=== PATIENT | male | born 1965 | race Caucasian/White ===

== ENCOUNTER 2019-01-18 12:11 | Emergency (ER) | payer OTHER ==
[~2019-01-18] VITALS: Ht 177.8 cm; Wt 118.2 kg
[~2019-01-18 12:11] MED LIST: CLINDAMYCIN150 MG PO; PRAVASTATIN20 MG PO; TENORMIN25 MG PO
[2019-01-18] MEDS ORDERED: ROBINUL FORTE2 MG PO (12:24)
[2019-01-18] MEDS ORDERED: PROZAC40 MG PO (12:25)
[2019-01-18] MEDS ORDERED: MINIPRESS2 MG (12:25)
[2019-01-18] MEDS ORDERED: TYLENOL PM EXTR1 TA1 PO (12:26)
[2019-01-18] MEDS ORDERED: LIPITOR 10MG10 MG PO (12:26)
[2019-01-18] MEDS ORDERED: LOPRESSOR 225 MG/TAB PO (12:26)
[2019-01-18] MEDS ORDERED: CRUTCHES MC (13:13)
[2019-01-18] MEDS ORDERED: NORCO 325 MG-7.1 TAB PO (14:29)
[2019-01-18 14:47] VITALS: BP 109/57; PULSE 63
== END 2019-01-18 14:48 | disposition home or self-care (01) ==
LOC: COL.ER 12:11
DX: S92.002A Unspecified fracture of left calcaneus, initial encounter for closed fracture (principal); E78.5 Hyperlipidemia, unspecified; I10 Essential (primary) hypertension; F41.9 Anxiety disorder, unspecified; F32.9 Major depressive disorder, single episode, unspecified; Z90.49 Acquired absence of other specified parts of digestive tract; W11.XXXA Fall on and from ladder, initial encounter; Y92.009 Unspecified place in unspecified non-institutional (private) residence as the place of occurrence of the external cause
CPT/HCPCS: Q4045

== ENCOUNTER → 2021-07-03 | Outpatient (CLI) | payer OTHER ==
[~2021-07-03] MED LIST changes: +CRUTCHES MC; +LIPITOR 10MG10 MG PO; +LOPRESSOR 225 MG/TAB PO; +MINIPRESS2 MG; +NORCO 325 MG-7.1 TAB PO; +PROZAC40 MG PO; +ROBINUL FORTE2 MG PO; +TYLENOL PM EXTR1 TA1 PO
== END ==
LOC: COL.RAD 09:49
DX: K40.90 Unilateral inguinal hernia, without obstruction or gangrene, not specified as recurrent (principal); K57.30 Diverticulosis of large intestine without perforation or abscess without bleeding; R91.1 Solitary pulmonary nodule
CPT/HCPCS: Q9967

== ENCOUNTER 2021-09-10 05:17 | Day surgery (SDC) | payer OTHER ==
[~2021-09-10] VITALS: Ht 208.3 cm; Wt 124.6 kg
--- NOTE | 2021-09-10 05:26 | NUR ---
56 Year old male admitted to [facility] via ambulation and no use of assistive devices. Medications and HX reviewed. Vitals obtained. Procedure verified and consent signed. First and last name + verified with the patient, who verbalized understanding. Patient used the bathroom prior to pre-op. The patient changed into a clean gown and is wearing the Non-slip socks. Physical assessment completed. IV started in R hand on first attempt with 20G. IVF scanned and are infusing without difficulty. His was brought into the room from the surgical waiting area. Side rails x2. Call kraft is at bedside.
[2021-09-10] MEDS ORDERED: EFFEXOR-XR150 MG PO (05:31)
[2021-09-10] MEDS ORDERED: ASPIRIN E.C. 8181 MG PO (05:32)
[2021-09-10] MEDS ORDERED: LIPITOR 10MG10 MG PO (05:32)
[2021-09-10] MEDS ORDERED: MINIPRESS 1M1 MG/CAP PO (05:32)
[2021-09-10] MEDS ORDERED: LAMICTAL ODT100 MG TL (05:33)
[2021-09-10] MEDS ORDERED: METOPROLOL PO (05:35)
[2021-09-10 05:44] VITALS: BP 123/80; PULSE 80; TEMP 99.2
[2021-09-10] MEDS ORDERED: NORCO 325 MG-51 TAB PO (09:13)
[2021-09-10 10:00] VITALS: BP 125/67; PULSE 80; TEMP 97.6
--- NOTE | 2021-09-10 10:00 | NUR ---
Patient arrived from the PACU escorted by THOR Hall after recieving a general anasthesia. Patient is alert and oriented. Verbal report obtained over the phone. Vitals obtained. Patient is tolerating ice water well and requested a Sprite to drink. Call kraft is at bedside. Will continue to monitor per intervals.
[2021-09-10 10:15] VITALS: BP 121/82; PULSE 80
--- NOTE | 2021-09-10 10:15 | NUR ---
Patient is alert and awake, laying in bed. His is present. Buttered wheat toast served per patient request. Vitals obtained.
[2021-09-10 10:30] VITALS: BP 115/73; PULSE 77
--- NOTE | 2021-09-10 10:30 | NUR ---
Patient states that he is ready to use the bathroom. Patient was assisted to bedside, where he waiting a few minutes before standing. He ambulated to the bathroom and successfully voided. Patient then ambulated back to his bay, wher the RN removed his IV. Catheter tip intact. No swelling or redness noted. Pressure dressing applied. Discharge instructions and educational material was reviewed. Patient verbalized understanding and signed the related paperwork. Patient and his denied having any further questions or concerns. Follow up appointment card provided.
--- NOTE | 2021-09-10 11:15 | NUR ---
Patient was escorted out to the patient entrence by THOR Atkins and his via wheelchair. His has the patients belongings and discharge information packet. Patient was transferred into the care of his , who is present to drive. The patient got into the front passanger seat.
== END 2021-09-10 11:15 | disposition home or self-care (01) ==
LOC: SDCO 05:17
DX: K40.90 Unilateral inguinal hernia, without obstruction or gangrene, not specified as recurrent (principal); K63.5 Polyp of colon; K57.30 Diverticulosis of large intestine without perforation or abscess without bleeding; E78.00 Pure hypercholesterolemia, unspecified; I10 Essential (primary) hypertension; E78.5 Hyperlipidemia, unspecified; F41.9 Anxiety disorder, unspecified; F32.A Depression, unspecified; Z79.82 Long term (current) use of aspirin; Z79.899 Other long term (current) drug therapy
CPT/HCPCS: C1781; J0330; J0690; J1100; J1885; J2405; J2704; J3010; J7120